=== PATIENT | male | born 1990 | race Caucasian/White ===

== ENCOUNTER 2023-10-05 11:23 | Emergency (ER) | payer SELFPAY ==
--- NOTE | 2023-10-05 | ECG_ITS ---
Test Reason : OVERDOSE Blood Pressure : / mmHG Vent. Rate : 083 BPM Atrial Rate : 083 BPM P-R Int : 136 ms QRS Dur : 094 ms QT Int : 364 ms P-R-T Axes : 078 078 043 degrees QTc Int : 427 ms Normal sinus rhythm Normal ECG When compared with ECG of 15-JUN-2017 13:37, Nonspecific T wave abnormality now evident in Anterior leads Referred By: Generic ED Physician Electronically Signed By:TRISHA LO MD
--- NOTE | ~2023-10-05 | XR_ITS ---
EXAMINATION: XR CHEST 12:46 PM CLINICAL INFORMATION: Vomiting, overdose, question aspiration COMPARISON: None available. TECHNIQUE: Frontal view of the chest was obtained. FINDINGS: No significant abnormality is noted involving the heart, lungs, mediastinum, bony thorax or soft tissues. XR/XR chest 1V IMPRESSION: Unremarkable examination.
[2023-10-05 11:47] VITALS: BP 109/74; BP 126/73; PULSE 104; PULSE 113; RESP 18; O2SAT 100; O2SAT 99; BMI 22.4
--- NOTE | 2023-10-05 11:47 | ED.OVERDOSE ---
HPI - Overdose General Chief Complaint: ETOH/Substance Use Stated Complaint: OVERDOSE Time Seen by Provider: 10/05/23 11:36 History of Present Illness HPI Narrative: Patient is a 33-year-old male who presents to the emergency department via EMS for evaluation after being found unresponsive. Mother is at bedside, she states that she was awaiting him to pick her up this morning to take her to breakfast. He did not show up nor was he responding to her phone calls. She contacted her daughter who states that patient's phone was going directly to [facility]. Mother reports that he has a history of heroin usage and she became concerned, she had her daughter drive her around, and ultimately was able to find his car parked on the side of the road. He was not responsive, noted to be drooling, EMS instructed her to remove his shoes and please something cool to his groin, at which point after placing ice she found a few small packets in his waistline. At the time of my evaluation patient is drowsy but responds to verbal stimuli, he denies any drug usage, is unaware of the events precipitating his visit to the emergency department. He ultimately required 32 mg of intranasal Narcan before arousing. He declines interest in detox at this time. Related Data Allergies Allergy/AdvReac Type Severity Reaction Status Date / Time No Known Allergies Allergy Verified 10/05/23 11:55 [No Known Allergies*] Review of Systems Review of Systems: Yes all other systems are reviewed and are negative [facility] Past Medical History Attestation statement: The following information was validated with the patient. Source: old records reviewed Social History Social History Use of substances other than those prescribed or required for medical reasons: Yes Substance Use Type: Heroin Substance Use Frequency: Chronic Longstanding Last Used Substance: Just Prior to Admission Advance Directives: No Advance Directives Information Provided: No Do you have a plan to hurt others: No Plan Physical Exam Vital Signs: Vital Signs: Last Vital Signs Temp 98.9 F 10/05/23 12:40 Pulse 97 10/05/23 14:10 Resp 16 10/05/23 14:10 BP 109/74 10/05/23 11:47 Pulse Ox 96 10/05/23 14:11 O2 Del Method Nasal Cannula 10/05/23 14:11 O2 Flow Rate 1 10/05/23 14:11 BMI result Body Mass Index 22.4 Appearance: Lethargic, arouses to verbal stimuli?Oriented to person, No acute distress.?Normal affect. Eyes: Pupils equal, round and reactive to light.? ENT: Pharynx normal.?? Neck: Normal inspection.? Neck supple.?? CVS: Heart sounds normal. Tachycardic? Pulses normal.?? Respiratory: No respiratory distress.? Lung sounds clear to auscultation bilaterally?? Abdomen: Soft and non-tender. Normoactive bowel sounds. ? Skin: Skin warm and dry.? Normal skin color.? Extremities: No lower extremity edema.? Neuro: Moves all extremities spontaneously. Sensation intact bilaterally. CN II-XII intact. No focal neuro deficits. Course Reevaluation(s) Reevaluation #1: Review of serum labs reveals WBC 41295, may be reactive in nature versus infectious process no clinical evidence cellulitis/skin infections; mild normocytic anemia. No electrolyte derangement. No DURGA. Mildly elevated AST/ALT 58/68, no right upper quadrant tenderness upon palpation, no jaundice. CXR is without acute pathology. EKG reveals a normal sinus rhythm with ventricular rate of 83, QTC 427, no ST elevation, no ST depression no T-wave inversion. Reevaluation #2: Patient remains arousable to verbal stimuli, sleeping, mother remains at bedside. Time: 15:19 Reevaluation #3: Patient signed out to Alex THORPE pending disposition planning, once more awake will have addiction medicine consult, toxicology pending. Time: 16:23 Additional Reevaluation(s): Patient received in sign-out at change of shift pending addiction medicine consult. The patient was seen by addiction medicine and only recommended take home Narcan. I discussed with the patient if he had any other concerns which he does not. He was able to stay awake for the entire conversation without any difficulty. He is comfortable with discharge and I feel he is stable for discharge at this time Medications Administered Discontinued Medications Generic Name Dose Route Start Last Admin Trade Name Freq PRN Reason Stop Dose Admin Sodium Chloride 1,000 mls @ 999 mls/hr 10/05/23 14:00 10/05/23 15:02 Ns IV 10/05/23 15:00 Infused .Q1H1M JIL Infusion Medical Decision Making Medical Decision Making MDM Narrative: Patient is a 33-year-old male per family has history of opioid uses presenting to emergency department after being found unresponsive in car, and after 32 mg of intranasal Narcan by bystanders before EMS had arrived, he then became responsive. Patient denies any opioid usage, denies need for or interest in detox. He is unable to tell me why he is here today when asked. He is lethargic upon evaluation but easily arousable to verbal stimuli before falling back to sleep. Maintaining respirations, no bradypnea or hypoxia on room air. Differential Diagnosis Differential Diagnoses: The differential diagnosis associated with the presentation includes (See narrative above in course narrative for further detail) Admission/Observation Consideration of admission/observation: Escalation of care including admission/observation considered (Physician observation for monitoring after overdose with Narcan administration) Lab Data MDM Lab Attestation statement: I reviewed the patient's lab results. (See course narrative) 10/05/23 12:54 10/05/23 12:54 Labs: Lab Results 10/05/23 Range/Units 12:54 WBC 21.1 H (4.8-10.8) X10*3/uL RBC 5.04 (4.60-5.80) X10*6/uL Hgb 13.8 L (14.0-18.0) g/dl Hct 41.9 L (42.0-52.0) % MCV 83.1 (80.0-98.0) fL MCH 27.4 (27.0-33.0) pg MCHC 32.9 (31.0-36.0) g/dl RDW 13.3 (11.0-16.0) % Plt Count 213 (160-400) X10*3/uL MPV 10.0 (9.4-12.4) fL Immature Gran % (Auto) 0.5 H (0.0-0.4) % Neut % (Auto) 90.4 H (45-73) % Lymph % (Auto) 3.2 L (20-40) % [place] % (Auto) 5.8 (2-11) % Eos % (Auto) 0.0 (0-4) % Baso % (Auto) 0.1 (0-2) % Lymph # (Auto) 0.7 L (1.2-4.9) X10*3/uL [place] # (Auto) 1.2 (0.1-1.2) X10*3/uL Eos # (Auto) 0.0 (0.0-0.4) X10*3/uL Baso # (Auto) 0.0 (0.0-0.2) X10*3/uL Abs Immat Gran (auto) 0.10 H (0.00-0.03) X10*3/uL Absolute Neuts (auto) 19.0 H (2.0-8.3) x10*3/uL Absolute Nucleated RBC 0.000 (0.0-0.012) X10*3/uL Nucleated RBC % (auto) 0.0 (0.0-0.2) /100WBC Smear Tech's Comments VERIFIED Sodium 138 (135-145) mmol/L Potassium 3.9 (3.3-5.1) mmol/L Chloride 104 (96-108) mmol/L Carbon Dioxide 25 (22-29) mmol/L Anion Gap 13 (12-20) BUN 11 (9-16) mg/dL Creatinine 1.15 (0.5-1.4) mg/dL Estim Creat Clear Calc 94.9 Estimated GFR > 60 Random Glucose 72 (60-115) mg/dL Calcium 8.2 L (8.4-10.2) mg/dL Magnesium 2.1 (1.6-2.6) mg/dL Total Bilirubin 0.4 (0.0-1.0) mg/dL AST 58 H (5-37) U/L ALT 68 H (0-40) U/L Alkaline Phosphatase 48 (39-117) U/L Total Creatine Kinase 388 H (38-174) U/L Total Protein 6.6 (6.5-8.0) g/dL Albumin 4.0 (3.5-5.0) g/dL Salicylates < 5.0 L (15-30) mg/dL Acetaminophen < 3 (<30) mcg/mL Ethyl Alcohol < 10 mg/dL Independent Interpretation I performed an independent interpretation of an: Plain X-Ray (See course narrative) Radiology Impression Discussion of test interpretation with radiology: I have reviewed the radiologist's reading. Radiologist Impression: XR/XR chest 1V IMPRESSION: Unremarkable examination. Independent Historian Clinical information obtained from an independent historian. History obtained from or confirmed by: Parent and EMS Discharge Plan Discharge Clinical Impression: Overdose Patient Disposition: Home, Self-Care Instructions: Adult Overdose (ED) Additional Instructions: Follow-up with your primary doctor, return for any new or worsening symptoms Print Language: Danish
[2023-10-05 12:40] VITALS: PULSE 104; TEMP 37.2
[2023-10-05 13:02] LABS: Basophils Percent Auto 0.1 % (0-2); Hematocrit 41.9 % (42.0-52.0); Hemoglobin 13.8 g/dl (14.0-18.0); Imm Gran Pct Auto 0.5 % (0.0-0.4); Lymphocytes Absolute Auto 0.7 X10*3/uL (1.2-4.9); Lymphocytes Percent Auto 3.2 % (20-40); MANUAL DIFF FLAG SCAN; Mean Corpuscular HGB Conc 32.9 g/dl (31.0-36.0); Mean Corpuscular Hemoglobin 27.4 pg (27.0-33.0); Mean Corpuscular Volume 83.1 fL (80.0-98.0); Monocytes Absolute Auto 1.2 X10*3/uL (0.1-1.2); Monocytes Percent Auto 5.8 % (2-11); Neutrophils Percent Auto 90.4 % (45-73); Platelet Count 213 X10*3/uL (160-400); Red Blood Count 5.04 X10*6/uL (4.60-5.80); Red Cell Distribution Width 13.3 % (11.0-16.0); SCAN SMEAR FLAG 1; White Blood Count 21.1 X10*3/uL (4.8-10.8)
[2023-10-05 13:17] LABS: Acetaminophen LAB < 3 mcg/mL (<30); Alanine Aminotransferase 68 U/L (0-40); Alkaline Phosphatase 48 U/L (39-117); Anion Gap 13 (12-20); Aspartate Amino Transferase 58 U/L (5-37); Bilirubin Total 0.4 mg/dL (0.0-1.0); Blood Urea Nitrogen 11 mg/dL (9-16); Calcium 8.2 mg/dL (8.4-10.2); Carbon Dioxide 25 mmol/L (22-29); Chloride 104 mmol/L (96-108); Creatinine Clr Calc Pharmacy 94.9; Estimated Glomerular Filt Rate > 60; Ethanol < 10 mg/dL; Glucose Random 72 mg/dL (60-115); Magnesium 2.1 mg/dL (1.6-2.6); Potassium 3.9 mmol/L (3.3-5.1); Salicylate < 5.0 mg/dL (15-30); Sodium 138 mmol/L (135-145); Total Protein 6.6 g/dL (6.5-8.0)
[2023-10-05 13:33] LABS: SLIDE REVIEW VERIFIED
[2023-10-05] MEDS: 0.9 % Sodium Chloride 1,000 ML 999 ML IV (14:01)
[2023-10-05 14:10] VITALS: PULSE 97; RESP 16; O2SAT 90
[2023-10-05 14:11] VITALS: O2SAT 96
[2023-10-05 17:22] LABS: Amphetamine Screen Urine Not Detected (Not Detect); Barbiturates, Urine Not Detected (Not Detect); Benzodiazepines Screen Urine Not Detected (Not Detect); Buprenorphine Scr Not Detected (Not Detect); Cannabinoid Screen Urine Not Detected (Not Detect); Cocaine Screen Urine POSITIVE (Not Detect); Fentanyl, urine POSITIVE (Not Detect); Methadone Screen, Urine Not Detected (Not Detect); Opiate Screen Urine POSITIVE (Not Detect); Oxycodone Screen Urine Not Detected (Not Detect); Phencyclidine Screen Urine Not Detected (Not Detect)
[2023-10-05 17:24] VITALS: BP 92/51; PULSE 72; RESP 16; TEMP 36.6; O2SAT 94
[2023-10-05] MEDS: Naloxone HCl Nasal TAKE HOME 4 MG SPRAY 8 MG NOSTRILALT (17:24)
== END 2023-10-05 17:27 | disposition home or self-care (01) ==
PROVIDERS: Emergency Provider Emergency Medicine
DX: R40.4 Transient alteration of awareness (principal); R11.10 Vomiting, unspecified; T50.901A Poisoning by unspecified drugs, medicaments and biological substances, accidental (unintentional), initial encounter; Y92.9 Unspecified place or not applicable
CPT/HCPCS: 36415; 71045; 80053; 80143; 80179; 80307; 82550; 83735; 85025; 93005; 96360; 99285

== ENCOUNTER → 2023-10-05 12:40 | Outpatient (BNV) | payer SELFPAY | PROVIDERS: Emergency Provider Emergency Medicine; Visit Provider Internal Medicine Cardiovascular Disease | DX: R46.4 Slowness and poor responsiveness (principal) | CPT/HCPCS: 93010 ==